=== PATIENT | male | born 1995 | race Hispanic/Latino ===

== ENCOUNTER → 2017-10-29 | Outpatient (CLI) | payer BC, MEDICAID | END | disposition home or self-care (01) | LOC: SHCH 10:45 | PROVIDERS: ATTEND Internal Medicine Cardiovascular Disease | DX: R00.2 Palpitations (principal) | CPT/HCPCS: 93306 ==

== ENCOUNTER 2018-08-02 00:33 | Emergency (ER) | payer BC ==
[2018-08-02] MEDS ORDERED: ONDANSETRON ODT 4 MG TAB ONE (01:12)
[2018-08-02] MEDS ORDERED: SODIUM CHLORIDE 0.9% 1000ML 1,000 ML IV ONE ×2 (01:41→03:26)
[2018-08-02] MEDS ORDERED: MORPHINE SULFATE 2 MG/ML 1ML SYG ONE (01:42)
[2018-08-02 01:47] LABS: BASOPHILS % (AUTO) 0.3 % (0.0-5.0); EOSINOPHILS % (AUTO) 0.1 % (0.0-8.0); HEMATOCRIT 47.3 % (42-54); LYMPHOCYTES % (AUTO) 4.3 % (21.0-51.0); MEAN CORPUSCULAR HEMOGLOBIN 28.4 pg (27.0-33.0); MEAN CORPUSCULAR HGB CONC 33.9 g/dL (32.0-36.0); MEAN CORPUSCULAR VOLUME 83.9 fL (79-99); MONOCYTES % (AUTO) 6.4 % (3.0-13.0); NEUTROPHILS % (AUTO) 88.9 % (40.0-77.0); RED BLOOD CELL COUNT(AUTO) 5.64 MIL/uL (4.50-6.20); RED CELL DISTRIBUTION WIDTH 13.8 % (11.0-15.5)
[2018-08-02 02:00] LABS: CREATININE 1.2 mg/dL (0.5-1.5); POTASSIUM 3.8 mmol/L (3.5-5.1)
[2018-08-02 02:05] LABS: ALBUMIN 4.4 g/dL (3.5-5.0); BILIRUBIN,TOTAL 1.7 mg/dL (0.2-1.0); TOTAL PROTEIN, SERUM 8.6 g/dL (6.0-8.3)
[2018-08-02 02:24] LABS: PLATELET COUNT (AUTO) 168 K/uL (130-400)
== END 2018-08-02 04:13 | disposition home or self-care (01) ==
LOC: EDH 00:33
DX: A09 Infectious gastroenteritis and colitis, unspecified (principal); E86.0 Dehydration
CPT/HCPCS: 36415; 80053; 83690; 85025; 87804 ×2; 96361; 96374; 99284; J7030 ×2

== ENCOUNTER 2022-11-05 07:48 | Day surgery (SDC) | payer BC ==
[2022-11-01 11:38] LABS: BASOPHILS % (AUTO) 0.9 % (0.0-5.0); EOSINOPHILS % (AUTO) 0.9 % (0.0-8.0); HEMATOCRIT 49.4 % (42-54); LYMPHOCYTES % (AUTO) 42.8 % (21.0-51.0); MEAN CORPUSCULAR HEMOGLOBIN 27.6 pg (27.0-33.0); MEAN CORPUSCULAR HGB CONC 32.8 g/dL (32.0-36.0); MEAN CORPUSCULAR VOLUME 84.2 fL (79-99); MONOCYTES % (AUTO) 7.8 % (3.0-13.0); NEUTROPHILS % (AUTO) 47.3 % (40.0-77.0); PLATELET COUNT (AUTO) 191 K/uL (130-400); RED BLOOD CELL COUNT(AUTO) 5.87 MIL/uL (4.50-6.20); RED CELL DISTRIBUTION WIDTH 13.9 % (11.0-15.5); WHITE BLOOD COUNT (AUTO) 6.9 K/uL (4.8-10.8)
[2022-11-01 11:47] LABS: CREATININE 1.2 mg/dL (0.5-1.5); POTASSIUM 4.3 mmol/L (3.5-5.1)
[2022-11-01 11:49] LABS: INR 0.93 (0.85-1.15); PROTHROMBIN TIME 10.2 SEC (9.6-11.6)
[2022-11-01 11:50] LABS: PARTIAL THROMBOPLASTIN TIME 29.9 SEC (26.3-35.5)
[2022-11-04 10:51] VITALS: BP 148/82
[2022-11-05] VITALS (7 sets, daily range): BP systolic 113–161; BP diastolic 53–78
[~2022-11-05] VITALS: Ht 177.8 cm; Wt 87.7 kg
[2022-11-05] MEDS ORDERED: 0.9%NACL 1000ML 1,000 ML IV ONE (08:15)
[2022-11-05] MEDS ORDERED: MEPERIDINE-PF 25 MG/ML SYG ONE ×4 (12:16→14:51)
[2022-11-05] MEDS ORDERED: MIDAZOLAM HCL 1 MG/ML 2ML VIAL ONE ×5 (12:16→14:51)
[2022-11-05] MEDS ORDERED: LIDOCAINE HCL 1% MDV 50ML VIAL ONE (12:16)
[2022-11-05] MEDS ORDERED: HEPARIN 10,000 UNIT/10ML (1,000 UNIT/ML) VIAL ONE (12:16)
[2022-11-05] MEDS ORDERED: ADENOSINE 90MG VIAL IV ONE (13:02)
[2022-11-05] MEDS ORDERED: DiphenhydrAMINE HCL 50 MG/ML VIAL ONE (13:28)
[2022-11-05] MEDS ORDERED: ISOPROTERENOL HCL 0.2 MG/ML AMP/VIAL/BAG ONE (13:53)
[2022-11-05] MEDS ORDERED: VERAPAMIL HCL 2.5 MG/ML VIAL ONE (14:58)
== END 2022-11-05 20:15 | disposition home or self-care (01) ==
LOC: DAH 07:48
PROVIDERS: ATTEND Internal Medicine Cardiovascular Disease
DX: I45.6 Pre-excitation syndrome (principal); F17.210 Nicotine dependence, cigarettes, uncomplicated; Z79.01 Long term (current) use of anticoagulants; Z79.899 Other long term (current) drug therapy; Z82.49 Family history of ischemic heart disease and other diseases of the circulatory system; Z98.890 Other specified postprocedural states
CPT/HCPCS: 80048; 85025; 85610; 85730; 36415; 93005 ×2; 93653; 93623; C1894 ×5; C1730 ×4; A4649 ×2; C1732; J1200; J7030; J3490 ×3; J1644 ×2; J2250 ×4; J2175 ×3; J0153; A4215; A4222; A4221; A4663; A4216; A4606; A4223 ×3; 99156; 99157